=== PATIENT | female | born 1945 | race Caucasian/White ===

== ENCOUNTER 2022-04-21 18:23 | Observation (INO) ==
[2022-04-21] MEDS ORDERED: 0.9 % SODIUM CHLORIDE 2,000 ML IV ONE (18:51)
[2022-04-21 19:32] LABS: POC Calcium, Ionized 1.32 (1.16-1.32); POC Creatinine 0.5 (0.6-1.2); POC Potassium 3.2 (3.3-5.1)
[2022-04-21 20:27] LABS: Basophils # (Auto) 0.02 K/mcL (0.00-0.30); Basophils % (Auto) 0.2 % (0.0-2.0); Eosinophils # (Auto) 0.02 K/mcL (0.00-0.70); Eosinophils % (Auto) 0.2 % (0.0-7.0); Hematocrit 32.6 % (34.1-44.9); Hemoglobin 9.9 g/dL (11.2-15.7); Lymphocytes % (Auto) 9.5 % (15.5-49.0); Mean Cell Volume 90.3 fL (80.0-100.0); Mean Corpuscular HGB Conc 30.4 g/dL (31.0-36.0); Mean Platelet Volume 9.5 fL (7.4-10.4); Monocytes # (Auto) 0.82 K/mcL (0.10-0.90); Monocytes % (Auto) 9.7 % (1.0-12.0); Neutrophils % (Auto) 80.4 % (38.0-78.0); Platelet Count 252 K/mcL (140-440); RBC 3.61 M/mcL (3.59-5.38); Red Cell Distribution Width 22.1 % (11.5-14.5); WBC 8.4 K/mcL (4.5-11.0)
[2022-04-21 20:44] LABS: ALT/SGPT 14 U/L (<40); AST/SGOT 18 U/L (<32); Albumin 2.4 gm/dL (3.2-5.2); Albumin/Globulin Ratio 0.8 (1.0-2.3); Alkaline Phosphatase 81 U/L (39-117); Bilirubin,Total 0.7 mg/dL (0.1-1.0); Blood Urea Nitrogen 14 mg/dL (8-23); Calcium 9.4 mg/dL (8.6-10.4); Carbon Dioxide 20 mmol/L (22-30); Chloride 97 mmol/L (96-108); Glomerular Filtration Rate 89; Glucose 70 mg/dL (70-105)
[2022-04-21 21:33] LABS: Appearance,Urine HAZY (Clear); Bilirubin,Urine Negative (Negative); Color,Urine YELLOW; Culture Indicated,Urine No; Glucose,Urine (UA) Negative (Negative); Ketones,Urine 20 mg/dL (Negative); Leukocyte Esterase,Urine Negative /uL (Negative); Nitrate,Urine Negative (Negative); Protein,Urine Negative (Negative); Specific Gravity,Urine 1.014 (1.000-1.035); Urine Blood Negative (Negative)
[2022-04-21 21:40] LABS: INR 1.2 (0.9-1.1); Prothrombin Time 15.5 sec (11.9-14.5)
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
[2022-04-21] MEDS ORDERED: ONDANSETRON 4 MG/2 ML VIAL IV PRN (23:37)
[2022-04-21] MEDS ORDERED: DEXTROSE 50% 50 ML VIAL IV PRN (23:37)
[2022-04-21] MEDS ORDERED: DEXTROSE 31 GM ORAL.SUSP PO PRN (23:37)
[2022-04-21] MEDS ORDERED: ACETAMINOPHEN 325 MG TABLET PO PRN (23:37)
[2022-04-21] MEDS ORDERED: ZOLPIDEM 5 MG TABLET PO PRN (23:37)
[2022-04-21] MEDS ORDERED: IPRATROPIUM/ALBUTEROL 3 ML AMPUL.NEB NEB PRN (23:37)
[2022-04-22] MEDS ORDERED: ZOLPIDEM 5 MG TABLET ONE (00:01)
[2022-04-22] MEDS ORDERED: ACETAMINOPHEN 325 MG TABLET PO ONE (00:02)
[2022-04-22] MEDS: 0.9 % SODIUM CHLORIDE 1,000 ML IV SCH ×2 (00:13→12:39)
[2022-04-22 00:15] LABS: Hemoglobin A1C 4.6 % Hgb (4.0-6.0)
[2022-04-22 00:19] LABS: Thyroid Stimulating Hormone 2.33 uIU/mL (0.27-5.01)
--- NOTE | 2022-04-22 00:42 | XRay Report ---
CLINICAL INFORMATION: Confusion and hypotension COMPARISON: 03/31/2022 TECHNIQUE: Portable FINDINGS: The heart size, mediastinum and pulmonary vessels are unremarkable. Minor bibasilar atelectasis noted.. There are no effusions. The bones and soft tissues are within normal limits. IMPRESSION: Normal chest. Interpreted and Authenticated by: Sarabjit Newman 04/22/22
[2022-04-22] MEDS: PIPERACILLIN SODIUM/TAZOBACTAM 3.375 GM in DEXTROSE 5% IN WATER 50 ML IV SCH ×3 (00:49→11:40)
[2022-04-22] MEDS ORDERED: 0.9 % SODIUM CHLORIDE 10 ML SYRINGE IV SCH (06:00)
[2022-04-22] MEDS ORDERED: LEVOTHYROXINE 75 MCG TABLET PO SCH (07:30)
[2022-04-22] MEDS: INSULIN LISPRO 1 UNIT/0.01 ML UNIT SQ SCH ×2 (07:37→11:30)
[2022-04-22 07:45] LABS: Basophils # (Auto) 0.01 K/mcL (0.00-0.30); Basophils % (Auto) 0.3 % (0.0-2.0); Eosinophils # (Auto) 0.09 K/mcL (0.00-0.70); Eosinophils % (Auto) 2.3 % (0.0-7.0); Hematocrit 28.3 % (34.1-44.9); Hemoglobin 8.6 g/dL (11.2-15.7); Lymphocytes # (Auto) 1.39 K/mcL (1.50-4.80); Lymphocytes % (Auto) 35.9 % (15.5-49.0); Mean Cell Volume 90.7 fL (80.0-100.0); Mean Corpuscular HGB Conc 30.4 g/dL (31.0-36.0); Mean Platelet Volume 9.7 fL (7.4-10.4); Monocytes # (Auto) 0.49 K/mcL (0.10-0.90); Monocytes % (Auto) 12.7 % (1.0-12.0); Neutrophils % (Auto) 48.8 % (38.0-78.0); Platelet Count 214 K/mcL (140-440); RBC 3.12 M/mcL (3.59-5.38); Red Cell Distribution Width 22.6 % (11.5-14.5); WBC 3.9 K/mcL (4.5-11.0)
[2022-04-22 07:51] LABS: ALT/SGPT 13 U/L (<40); AST/SGOT 16 U/L (<32); Albumin/Globulin Ratio 0.8 (1.0-2.3); Alkaline Phosphatase 69 U/L (39-117); Bilirubin,Total 0.4 mg/dL (0.1-1.0); Blood Urea Nitrogen 14 mg/dL (8-23); Calcium 8.8 mg/dL (8.6-10.4); Carbon Dioxide 21 mmol/L (22-30); Chloride 102 mmol/L (96-108); Globulin 2.6 gm/dL (2.2-3.7); Glomerular Filtration Rate 94; Glucose 62 mg/dL (70-105); Phosphorous 2.6 mg/dL (2.5-4.5)
[2022-04-22] MEDS ORDERED: POTASSIUM CHLORIDE 20 MEQ TABLET PO SCH (08:00)
[2022-04-22] MEDS: ATORVASTATIN 20 MG TABLET PO SCH ×2 (08:49→09:06)
[2022-04-22] MEDS: ENOXAPARIN 40 MG/0.4 ML SYRINGE SQ SCH ×2 (08:49→09:06)
[2022-04-22] MEDS ORDERED: DOCUSATE SODIUM 100 MG CAPSULE PO SCH (09:00)
[2022-04-22] MEDS ORDERED: CLOPIDOGREL 75 MG TABLET PO SCH (09:00)
[2022-04-22] MEDS ORDERED: VENLAFAXINE 150 MG CAP.XL.24H PO SCH (09:00)
[2022-04-22] MEDS ORDERED: QUEtiapine 100 MG TABLET PO SCH (09:00)
[2022-04-22] MEDS ORDERED: BACITRACIN TOPICAL OINT 15 GM TUBE TOPICAL PRN (09:00)
--- NOTE | 2022-04-22 10:11 | Discharge Summary ---
Discharge Provider Provider IMPORTANT FOLLOW-UP INFORMATION FOR PCP: Patient information: Note initiated : 04/22/22 at 10:09 am Service Date, if different from initiated Date: [] Patient: Ami Ojeda 76 y/o F admitted on 04/21/22 for confusion, hypotension. Chief Complaint: [] Date of admission: 04/21/22 23:15 Discharge date: 04/22/22 Primary care physician: José Ponce Attending physician on admission: Ap Shelby Consults: 04/21/22 Consult to Physician [CONS] Stat Comment: Consulting Provider: Ap Shelby Reason For Exam: Physician to Consult Attending physician on discharge: Ap Hardin Pusteven COURSE Hospital Course Hospital course: Ms. Ojeda is a 76 year old F history of CAD, type 2 diabetes mellitus, essential hypertension, mixed dyslipidemia, hypothyroidism, dementia, presenting with 2- day history of diaphoresis and general body weakness. She denies prior similar episode. The following history is also limited by the patient's clinical situations and lack of caregiver. Patient is complaining of 2-day history of diaphoresis. She is also complained of general body weakness. She also stated that she had a fever at home but now she has no fever. She denies any shortness of breath, cough, wheezing, or chest pain. She denies any current fever or chills. She denies any urinary symptoms such as dysuria or change in urinary frequency or urgency. She denies any GI symptoms such as nausea vomiting diarrhea or constipation's. Vital signs at ED presentation significant for hypertension's with blood pressure as low as 89/55 mmHg, as well as tachypnea with heart rate up to mid 30s. She is tolerating room air. Labs significant for lack of leukocytosis with WBC 8.4. Lactic acid 1.2. Serum troponin 0.05. UA does not suggest the presence of urinary tract infections. Chest x-ray no focal infiltrates. She was given 1.5 L NS fluid boluses and counting and her latest blood pressure improved to 119/56 mmHg. 04/22: Patient's blood pressure improved after IV fluid boluses and maintenance fluid overnight. Cultures no growth today. Afebrile overnight. Patient's which clinical stability. Decided to discharge patient's home with prescriptions of empiric oral antibiotics and with 1 week PCP follow-up appointment. Answered all the patient's questions before patient is physically discharged. Discharge diagnosis: sepsis Time Spent with Patient Time attestation: Total time spent providing and/or coordinating discharge services: Time spent: Less than 30 minutes EXAM Constitutional Vitals: Temp Pulse Resp BP Pulse Ox 36.3 C 57 L 18 106/65 99 04/22/22 07:21 04/22/22 07:21 04/22/22 07:21 04/22/22 07:21 04/22/22 07:21 General appearance: cooperative and no acute distress Head Head exam: Present atraumatic and normocephalic Eye Eye exam: Present EOMI and PERRL ENT ENT exam: Present mucous membranes moist, normal exam and normal external ear exam Neck Neck exam: Present normal inspection; Absent lymphadenopathy, tenderness or thyromegaly Respiratory Respiratory exam: Absent accessory muscle use, respiratory distress or wheezes Cardiovascular Cardiovascular exam: Present normal rate and rhythm; Absent JVD GI/Abdominal GI/Abdominal exam: Present normal bowel sounds and soft; Absent organomegaly or tenderness Extremities Exam Extremities exam: Present full ROM, normal capillary refill and normal inspection; Absent tenderness Neurological Exam Neurological exam: Present alert, CN II-XII intact and oriented X3; Absent motor sensory deficit Psychiatric Psychiatric exam: Present normal affect and normal mood; Absent anxious or depressed Skin Skin exam: Present dry and intact Discharge Data Data Completed and Pending Labs on day of discharge: Labs from last 24 hours 04/22/22 04/22/22 04/22/22 05:13 05:12 05:12 WBC 3.9 L RBC 3.12 L Hgb 8.6 L Hct 28.3 L POC Hct MCV 90.7 MCH 27.6 MCHC 30.4 L RDW 22.6 H Plt Count 214 MPV 9.7 Neut % (Auto) 48.8 Lymph % (Auto) 35.9 Giles % (Auto) 12.7 H Eos % (Auto) 2.3 Baso % (Auto) 0.3 Lymph # (Auto) 1.39 L Giles # (Auto) 0.49 Eos # (Auto) 0.09 Baso # (Auto) 0.01 Absolute Neutrophils 1.89 PT INR D-Dimer POC pH POC pCO2 POC pO2 POC HCO3 POC Total CO2 POC ABG Base Excess Hgb O2 Saturation POC Sodium Sodium 132 L POC Potassium Potassium 3.4 POC Chloride Chloride 102 Carbon Dioxide 21 L Anion Gap 9.0 POC BUN BUN 14 Creatinine 0.5 L POC Creatinine GFR Calculation 94 Glucose 62 L POC Glucose Hemoglobin A1c Estim Average Glucose POC Arterial Lactate Calcium 8.8 POC WB Ioniz Calcium Phosphorus 2.6 Magnesium 1.5 L Total Bilirubin 0.4 AST 16 ALT 13 Alkaline Phosphatase 69 NT-Pro-B Natriuret Pep Total Protein 4.6 L Albumin 2.0 L Globulin 2.6 Albumin/Globulin Ratio 0.8 L Procalcitonin TSH Random Cortisol Cortisol AM Sample Pending Urine Color Urine Appearance Urine pH Ur Specific [place] Urine Protein Urine Glucose (UA) Urine Ketones Urine Occult Blood Urine Nitrate Urine Bilirubin Urine Urobilinogen Ur Leukocyte Esterase Ur Culture Indicated? POC Troponin I 04/21/22 04/21/22 04/21/22 22:04 20:51 19:51 WBC RBC Hgb Hct POC Hct MCV MCH MCHC RDW Plt Count MPV Neut % (Auto) Lymph % (Auto) Giles % (Auto) Eos % (Auto) Baso % (Auto) Lymph # (Auto) Giles # (Auto) Eos # (Auto) Baso # (Auto) Absolute Neutrophils PT INR D-Dimer 1.06 H POC pH POC pCO2 POC pO2 POC HCO3 POC Total CO2 POC ABG Base Excess Hgb O2 Saturation POC Sodium Sodium POC Potassium Potassium POC Chloride Chloride Carbon Dioxide Anion Gap POC BUN BUN Creatinine POC Creatinine GFR Calculation Glucose POC Glucose Hemoglobin A1c Estim Average Glucose POC Arterial Lactate Calcium POC WB Ioniz Calcium Phosphorus Magnesium Total Bilirubin AST ALT Alkaline Phosphatase NT-Pro-B Natriuret Pep Total Protein Albumin Globulin Albumin/Globulin Ratio Procalcitonin 0.14 H TSH Random Cortisol Cortisol AM Sample Urine Color Yellow Urine Appearance Hazy A Urine pH 7.0 Ur Specific [place] 1.014 Urine Protein Negative Urine Glucose (UA) Negative Urine Ketones 20 A Urine Occult Blood Negative Urine Nitrate Negative Urine Bilirubin Negative Urine Urobilinogen 4.0 A Ur Leukocyte Esterase Negative Ur Culture Indicated? No POC Troponin I 04/21/22 04/21/22 04/21/22 19:51 19:51 19:51 WBC RBC Hgb Hct POC Hct MCV MCH MCHC RDW Plt Count MPV Neut % (Auto) Lymph % (Auto) Giles % (Auto) Eos % (Auto) Baso % (Auto) Lymph # (Auto) Giles # (Auto) Eos # (Auto) Baso # (Auto) Absolute Neutrophils PT INR D-Dimer POC pH POC pCO2 POC pO2 POC HCO3 POC Total CO2 POC ABG Base Excess Hgb O2 Saturation POC Sodium Sodium 131 L POC Potassium Potassium 4.2 POC Chloride Chloride 97 Carbon Dioxide 20 L Anion Gap 14.0 POC BUN BUN 14 Creatinine 0.6 POC Creatinine GFR Calculation 89 Glucose 70 POC Glucose Hemoglobin A1c 4.6 Estim Average Glucose 85 POC Arterial Lactate Calcium 9.4 POC WB Ioniz Calcium Phosphorus Magnesium Total Bilirubin 0.7 AST 18 ALT 14 Alkaline Phosphatase 81 NT-Pro-B Natriuret Pep 4966.0 H Total Protein 5.4 L Albumin 2.4 L Globulin 3.0 Albumin/Globulin Ratio 0.8 L Procalcitonin TSH 2.33 Random Cortisol 34.8 Cortisol AM Sample Urine Color Urine Appearance Urine pH Ur Specific [place] Urine Protein Urine Glucose (UA) Urine Ketones Urine Occult Blood Urine Nitrate Urine Bilirubin Urine Urobilinogen Ur Leukocyte Esterase Ur Culture Indicated? POC Troponin I 04/21/22 04/21/22 04/21/22 19:51 19:29 19:28 WBC 8.4 RBC 3.61 Hgb 9.9 L Hct 32.6 L POC Hct 28.0 L MCV 90.3 MCH 27.4 MCHC 30.4 L RDW 22.1 H Plt Count 252 MPV 9.5 Neut % (Auto) 80.4 H Lymph % (Auto) 9.5 L Giles % (Auto) 9.7 Eos % (Auto) 0.2 Baso % (Auto) 0.2 Lymph # (Auto) 0.80 L Giles # (Auto) 0.82 Eos # (Auto) 0.02 Baso # (Auto) 0.02 Absolute Neutrophils 6.77 PT INR D-Dimer POC pH 7.59 H POC pCO2 17.4 L* POC pO2 117 H POC HCO3 16.9 L POC Total CO2 19.0 L 17.0 L POC ABG Base Excess -5.0 L Hgb O2 Saturation 99.0 H POC Sodium 132 L Sodium POC Potassium 3.2 L Potassium POC Chloride 101 Chloride Carbon Dioxide Anion Gap POC BUN 14 BUN Creatinine POC Creatinine 0.5 L GFR Calculation Glucose POC Glucose 76 Hemoglobin A1c Estim Average Glucose POC Arterial Lactate 1.2 Calcium POC WB Ioniz Calcium 1.32 Phosphorus Magnesium Total Bilirubin AST ALT Alkaline Phosphatase NT-Pro-B Natriuret Pep Total Protein Albumin Globulin Albumin/Globulin Ratio Procalcitonin TSH Random Cortisol Cortisol AM Sample Urine Color Urine Appearance Urine pH Ur Specific [place] Urine Protein Urine Glucose (UA) Urine Ketones Urine Occult Blood Urine Nitrate Urine Bilirubin Urine Urobilinogen Ur Leukocyte Esterase Ur Culture Indicated? POC Troponin I 04/21/22 04/21/22 19:27 19:10 WBC RBC Hgb Hct POC Hct MCV MCH MCHC RDW Plt Count MPV Neut % (Auto) Lymph % (Auto) Giles % (Auto) Eos % (Auto) Baso % (Auto) Lymph # (Auto) Giles # (Auto) Eos # (Auto) Baso # (Auto) Absolute Neutrophils PT 15.5 H INR 1.2 H D-Dimer POC pH POC pCO2 POC pO2 POC HCO3 POC Total CO2 POC ABG Base Excess Hgb O2 Saturation POC Sodium Sodium POC Potassium Potassium POC Chloride Chloride Carbon Dioxide Anion Gap POC BUN BUN Creatinine POC Creatinine GFR Calculation Glucose POC Glucose Hemoglobin A1c Estim Average Glucose POC Arterial Lactate Calcium POC WB Ioniz Calcium Phosphorus Magnesium Total Bilirubin AST ALT Alkaline Phosphatase NT-Pro-B Natriuret Pep Total Protein Albumin Globulin Albumin/Globulin Ratio Procalcitonin TSH Random Cortisol Cortisol AM Sample Urine Color Urine Appearance Urine pH Ur Specific [place] Urine Protein Urine Glucose (UA) Urine Ketones Urine Occult Blood Urine Nitrate Urine Bilirubin Urine Urobilinogen Ur Leukocyte Esterase Ur Culture Indicated? POC Troponin I 0.05 Discharge Plan Patient/Caregiver Discharge Instructions Activity: increase activity as tolerated Diet: Consistent Carbohydrate Prescriptions: New potassium chloride [Klor-Con M20] 20 mEq Tablet,Er Particles/Crystals 40 meq PO BIDCC Qty: 10 0RF magnesium oxide 400 mg magnesium tablet 400 mg PO QDAY Qty: 5 0RF amoxicillin-pot clavulanate [Augmentin] 500-125 mg tablet 1 tab PO BID Qty: 20 0RF Continued ergocalciferol (vitamin D2) 50,000 unit capsule 50,000 unit PO QWEEK Qty: 12 3RF levothyroxine 75 mcg tablet 75 mcg PO QDAY Qty: 30 12RF venlafaxine 150 mg capsule,extended release 24hr 300 mg PO QDAY Qty: 60 12RF quetiapine 100 mg tablet 100 mg PO BID 0RF gabapentin 100 mg capsule 100 mg PO QHS Qty: 30 3RF atorvastatin 20 mg tablet 20 mg PO DAILY 0RF clopidogrel [Plavix] 75 mg tablet 75 mg PO DAILY 0RF bacitracin 500 unit/gram ointment 1 applic topical QDAY Qty: 14 0RF Rx Instructions: Please apply once daily with dressing changes until wound is healed Discontinued lisinopril-hydrochlorothiazide 20-25 mg tablet 1 tab PO QDAY Qty: 30 12RF metoprolol succinate 50 mg tablet extended release 24 hr 50 mg PO QDAY Qty: 90 3RF Follow Up Plan Follow up with: José Ponce MD [Primary Care Provider] - Patient Disposition: Home, Self-Care Prognosis: Fair Rehab Potential: Good I certify that the patient requires SNF services: No Overall status at discharge: patient is back to baseline Discharge Orders: Discharge Order (Routine); Ordered 04/22/22 Ordered By: Ap DOWNS VTE Deep Vein Thrombosis/Pulmonary Embolism Present on Admission: No
--- NOTE | 2022-04-22 12:44 | EKG ---
[facility] Test Date: 2022-04-21 Pat Name: Ami Ojeda Department: ED Room: Gender: Female Resume Writer: SB : [id number] Requested By: Faisal Rand Order Number: [id number] Reading MD: Pj Enriquez Measurements Intervals [place] Rate: 53 P: 31 CT: 156 QRS: 26 QRSD: 99 T: 57 QT: 495 QTc: 465 Interpretive Statements Sinus rhythm Low voltage, precordial leads Abnormal R-wave progression, early transition Electronically Signed On 04-22-2022 12:44:06 PDT by Pj Enriquez /[id number]
[2022-04-22] MEDS ORDERED: GABAPENTIN 100 MG CAPSULE PO SCH (21:00)
[2022-04-22] MEDS ORDERED: SENNOSIDES 1 TABLET PO SCH (21:00)
[2022-04-25] MEDS ORDERED: ERGOCALCIFEROL (VITAMIN D2) 50,000 UNIT CAPSULE PO SCH (09:00)
== END 2022-04-22 12:30 | disposition home or self-care (01) ==
LOC: ED 18:23 → ICU 18:23
PROVIDERS: ADMIT Internal Medicine; ATTEND Internal Medicine